=== PATIENT | male | born 1970 | race Caucasian/White ===

== ENCOUNTER 2019-05-24 22:03 | Emergency (ER) | payer OTHER ==
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
[2019-05-24] MEDS: SODIUM CHLORIDE 0.9% 1000ML 1,000 ML IVS ONE (23:48)
[2019-05-24] MEDS: ACETAMINOPHEN 500 MG TAB PO ONE (23:48)
[2019-05-24] MEDS: TETANUS,DIPHTHERIA,PERTUSSIS 1 EA SYG IM ONE (23:48)
--- NOTE | 2019-05-25 00:56 | CT ---
CLINICAL HISTORY: trauma COMPARISON: None. TECHNIQUE: CT ABDOMEN PELVIS WITH IV CONTRAST on 05/24/2019 11:23 PM CDT This exam was performed according to our departmental dose-optimization program, which includes automated exposure control, adjustment of the mA and/or kV according to patient size and/or use of iterative reconstruction technique. FINDINGS: Lower lungs are clear. Abdomen: The liver is normal in appearance. There is no biliary dilatation. Gallbladder is normal in appearance. The pancreas and spleen are normal in appearance. Adrenal glands and right kidney are unremarkable. There is a tiny cortical cyst in the left kidney mid to upper pole. Abdominal aorta is normal in course and caliber without aneurysm. There is no free air. There is no retroperitoneal adenopathy. Pelvis: There is no bowel obstruction. Urinary bladder is unremarkable. There is no free fluid. Appendix is normal. Skeleton: There are no acute osseous findings. No suspicious bony lesions. IMPRESSION: No posttraumatic findings. Electronically signed by: Sagar Foreman MD 05/25/2019 12:55 AM CDT
--- NOTE | 2019-05-25 00:57 | CT ---
CLINICAL HISTORY: trauma COMPARISON: None. TECHNIQUE: CT CERVICAL SPINE WITHOUT IV CONTRAST on 05/24/2019 11:23 PM CDT This exam was performed according to our departmental dose-optimization program, which includes automated exposure control, adjustment of the mA and/or kV according to patient size and/or use of iterative reconstruction technique. FINDINGS: There is no acute fracture. Alignment is anatomic. There is mild diffuse facet arthritis. There is mild to moderate narrowing of the C5-6, C6-7 and C7-T1 discs. Vertebral body heights are preserved. Soft tissues are unremarkable. IMPRESSION: No acute fracture or subluxation. Electronically signed by: Sagar Foreman MD 05/25/2019 12:56 AM CDT
--- NOTE | 2019-05-25 00:58 | CT ---
CLINICAL HISTORY: trauma COMPARISON: None. TECHNIQUE: CT HEAD WITHOUT IV CONTRAST on 05/24/2019 11:23 PM CDT This exam was performed according to our departmental dose-optimization program, which includes automated exposure control, adjustment of the mA and/or kV according to patient size and/or use of iterative reconstruction technique. FINDINGS: There is no acute hemorrhage, mass effect or midline shift. Parada-white differentiation is preserved. There is no hydrocephalus. There is no significant volume loss for age. The calvarium is intact. Orbits and globes are unremarkable. There is mild thickening of the maxillary sinuses. Many of the ethmoid air cells are thickened. There is minimal thickening of the sphenoid sinuses. Mastoid air cells are clear. IMPRESSION: No acute intracranial findings. Electronically signed by: Sagar Foreman MD 05/25/2019 12:57 AM CDT
--- NOTE | 2019-05-25 00:59 | CT ---
CLINICAL HISTORY: trauma COMPARISON: None. TECHNIQUE: CT MAXILLOFACIAL WITHOUT IV CONTRAST on 05/24/2019 11:23 PM CDT This exam was performed according to our departmental dose-optimization program, which includes automated exposure control, adjustment of the mA and/or kV according to patient size and/or use of iterative reconstruction technique. FINDINGS: There is no acute fracture. There is mild to moderate thickening of the maxillary sinuses. There is mild thickening of the ethmoid air cells and sphenoid sinuses. There are postoperative changes of the left anterior mandible. Orbits and globes are unremarkable. Mastoid air cells are clear. Temporomandibular joints are intact. There is extensive left infraorbital soft tissue swelling. IMPRESSION: Left infraorbital soft tissue swelling without definite fracture. Electronically signed by: Sagar Foreman MD 05/25/2019 12:58 AM CDT
--- NOTE | 2019-05-25 00:59 | RAD ---
CLINICAL HISTORY: trauma COMPARISON: None. TECHNIQUE: XR RIBS 3 VIEWS BILATERAL 05/24/2019 11:23 PM CDT FINDINGS: Cardiac silhouette is normal in size. Lungs are clear without consolidation, atelectasis, mass or edema. There is no pleural effusion. There is no pneumothorax. There are no acute osseous findings. IMPRESSION: No definite fracture. Electronically signed by: Sagar Foreman MD 05/25/2019 12:58 AM CDT
--- NOTE | 2019-05-25 01:00 | RAD ---
CLINICAL HISTORY: trauma COMPARISON: None. TECHNIQUE: XR CHEST 2 VIEWS 05/24/2019 11:23 PM CDT FINDINGS: Cardiac silhouette is normal in size. Lungs are clear without consolidation, atelectasis, mass or edema. There is no pleural effusion. There is no pneumothorax. There are no acute osseous findings. IMPRESSION: Clear lungs. Electronically signed by: Sagar Foreman MD 05/25/2019 12:58 AM CDT
--- NOTE | 2019-05-25 01:00 | RAD ---
CLINICAL HISTORY: trauma COMPARISON: None. TECHNIQUE: XR PELVIS 3 OR MORE VIEWS 05/24/2019 11:23 PM CDT FINDINGS: There is no fracture. Joint spaces are preserved. Soft tissues are unremarkable. IMPRESSION: No acute osseous findings. Electronically signed by: Sagar Foreman MD 05/25/2019 12:58 AM CDT
[2019-05-25 01:30] VITALS: TEMP 98.1
[2019-05-25 01:36] VITALS: BP 118/82; O2SAT 95
== END 2019-05-25 01:37 ==
LOC: ER 22:03
DX: S09.90XA Unspecified injury of head, initial encounter (principal); F10.920 Alcohol use, unspecified with intoxication, uncomplicated; E07.9 Disorder of thyroid, unspecified; Z87.891 Personal history of nicotine dependence; Z79.899 Other long term (current) drug therapy; Y00.XXXA Assault by blunt object, initial encounter; Y92.009 Unspecified place in unspecified non-institutional (private) residence as the place of occurrence of the external cause
CPT/HCPCS: 70450; 70486; 71046; 71111; 72125; 72190; 74177; 80053; 80307; 80320; 80329; 81001; 84484; 85025; 93005; J7030